=== PATIENT | female | born 1955 ===

== ENCOUNTER 2020-05-10 10:46 | Emergency (ER) | payer MEDICARE ==
--- NOTE | 2020-05-10 11:27 | XRay Report ---
LEFT FOOT 3 VIEWS INDICATION / CLINICAL INFORMATION: swelling. COMPARISON: None available. FINDINGS: Moderate degenerative change in the first metatarsophalangeal joint. No other significant skeletal ab normality Signer Name: Marco Gandhi MD FACReynaldo Signed: 05/10/2020 11:22 AM Workstation Name: [id number]
[2020-05-10 11:38] VITALS: BP 154/97
[2020-05-10] MEDS ORDERED: HYDROcodone/ACETAMINOPHEN 5-325 MG TAB PO STA (11:43)
[2020-05-10] MEDS ORDERED: predniSONE 50 MG TAB PO STA (11:43)
--- NOTE | 2020-05-10 11:58 | Emergency Department Report ---
ED General Adult HPI - General Chief complaint: Extremity Injury, Lower Stated complaint: FOOT SWOLLEN Time Seen by Provider: 05/10/20 11:43 Source: family Mode of arrival: Ambulatory Limitations: No Limitations - History of Present Illness Initial comments: 65-year-old obese F [place]ien female past no history of hypertension presents emerged department complaining of 1 week or so history of progressively worsening pain to the left hallux which she states started after she is started to eat an excessive amount of sardines and salmon. She is tried some [id number] treatments but been unsuccessful and notes that the area has been becoming more red swollen and exquisitely tender and that the Epson salt baths has actually worsened her symptoms. Reports no fever, chills, sweats no chest pain or palpitations no neuropathy is noted. She reports no known history of any diet diabetes or the musculoskeletal issue. -: week(s) Severity scale (0 -10): 10 - Related Data Previous Rx's Medication Instructions Recorded Last Taken Type Colchicine 0.6 mg PO Q1HR #14 capsule 05/10/20 Unknown Rx predniSONE [Deltasone] 50 mg PO QDAY #5 tab 05/10/20 Unknown Rx traMADoL [Ultram] 50 mg PO Q6HR PRN #14 tablet 05/10/20 Unknown Rx Allergies Allergy/AdvReac Type Severity Reaction Status Date / Time No Known Allergies Allergy Unverified 05/10/20 10:55 ED Review of Systems ROS: Stated complaint: FOOT SWOLLEN Other details as noted in HPI Comment: All other systems reviewed and negative ED Past Medical Hx - Past Medical History Previous Medical History?: Yes - Surgical History Past Surgical History?: Yes - Social History Smoking Status: Never Smoker Substance Use Type: Alcohol, Marijuana - Medications Home Medications: Home Medications Medication Instructions Recorded Confirmed Last Taken Type Colchicine 0.6 mg PO Q1HR #14 capsule 05/10/20 Unknown Rx predniSONE [Deltasone] 50 mg PO QDAY #5 tab 05/10/20 Unknown Rx traMADoL [Ultram] 50 mg PO Q6HR PRN #14 tablet 05/10/20 Unknown Rx ED Physical Exam - General Limitations: No Limitations General appearance: alert, in no apparent distress - Head Head exam: Present: atraumatic, normocephalic - Eye Eye exam: Present: normal appearance, PERRL, EOMI Pupils: Present: normal accommodation - ENT ENT exam: Present: normal exam, mucous membranes moist, TM's normal bilaterally - Neck Neck exam: Present: normal inspection, full ROM - Respiratory Respiratory exam: Present: normal lung sounds bilaterally, wheezes, rales, rhonchi. Absent: respiratory distress, chest wall tenderness, accessory muscle use, decreased breath sounds - Cardiovascular Cardiovascular Exam: Present: regular rate, normal rhythm. Absent: systolic murmur, diastolic murmur, rubs, gallop - GI/Abdominal GI/Abdominal exam: Present: soft, normal bowel sounds - Extremities Exam Extremities exam: Present: normal inspection, tenderness (There is tenderness to the base of the left first metatarsophalangeal joint region with some some redness. No abscess is appreciated significant tenderness with palpation and movement of the joint. No broken skin. Capillary refills are brisk pulses are 2+ no petechiae are noted. Knees ankles normal variant) - Back Exam Back exam: Present: normal inspection. Absent: CVA tenderness (R), CVA tenderness (L) - Neurological Exam Neurological exam: Present: alert, oriented X3 - Psychiatric Psychiatric exam: Present: normal affect, normal mood - Skin Skin exam: Present: warm, dry, intact, normal color. Absent: rash ED Course Vital Signs 05/10/20 11:37 Temperature 99.4 F Pulse Rate 78 Respiratory 16 Rate Blood Pressure 154/97 [Right] O2 Sat by Pulse 99 Oximetry Critical care attestation.: If time is entered above; I have spent that time in minutes in the direct care of this critically ill patient, excluding procedure time. ED Disposition Clinical Impression: Podagra Disposition: [id number]-01 TO HOME OR SELFCARE Is pt being admited?: No Does the pt Need Aspirin: No Condition: Stable Instructions: Acute Gouty Arthritis (ED) Prescriptions: Colchicine 0.6 mg PO Q1HR #14 capsule predniSONE [Deltasone] 50 mg PO QDAY #5 tab traMADoL [Ultram] 50 mg PO Q6HR PRN #14 tablet PRN Reason: Pain Referrals: [facility] [Provider Group] - 3-5 Days INDERJIT SHRESTHA MD [Staff Physician] - 3-5 Days
== END 2020-05-10 13:06 | disposition home or self-care (01) ==
LOC: ED 10:46
DX: M10.9 Gout, unspecified (principal); F12.10 Cannabis abuse, uncomplicated; Z79.899 Other long term (current) drug therapy
CPT/HCPCS: 73630; 99283; J7512

== ENCOUNTER 2020-06-16 13:13 | Emergency (ER) | payer MEDICARE ==
[2020-06-16] MEDS ORDERED: KETOROLAC 60 MG/2 ML INJ IM ONE (13:45)
[2020-06-16] MEDS ORDERED: dexAMETHasone 20 MG/5 ML VIAL IM ONE (13:45)
--- NOTE | 2020-06-16 13:48 | Emergency Department Report ---
ED General Adult HPI - General Chief complaint: Extremity Injury, Lower Stated complaint: LT FOOT GOUT/HEADACHE Time Seen by Provider: 06/16/20 13:42 Source: patient Mode of arrival: Ambulatory Limitations: No Limitations - History of Present Illness Initial comments: Patient is a 65-year-old female presents emergency room with complaints of a gout flare that began 2 days ago. She states the gout was in her big toe and partially in her foot. She states that she has not been following the diet for gout and recently ate multiple different meats and lots of sodium during the holidays. She states that she was just diagnosed with gout in April 2020 but did not follow-up with anyone. She states that she has also been having intermittent headache described as a pressure over the last few days. She states that she previously had a history of hypertension and used to take medications but she did lifestyle modifications and her primary care took her off of the blood pressure medicine. She denies any numbness, weakness, vision changes, chest pain, shortness of breath, gait disturbance, speech disturbance. She has a past medical history of gout and ulcerative colitis. No allergies to medications. - Related Data Previous Rx's Medication Instructions Recorded Last Taken Type Colchicine 0.6 mg PO Q1HR #14 capsule 05/10/20 Unknown Rx predniSONE [Deltasone] 50 mg PO QDAY #5 tab 05/10/20 Unknown Rx traMADoL [Ultram] 50 mg PO Q6HR PRN #14 tablet 05/10/20 Unknown Rx Colchicine 0.6 mg PO ONCE 1 Days #3 tablet 06/16/20 Unknown Rx Indomethacin 50 mg PO Q8H PRN #20 capsule 06/16/20 Unknown Rx Prednisone [predniSONE 10 mg 10 mg PO .TAPER #1 tab.ds.pk 06/16/20 Unknown Rx (6-Day Pack, 21 Tabs)] amLODIPine 5 mg PO DAILY #30 tab 06/16/20 Unknown Rx cephALEXin [Keflex] 500 mg PO BID 7 Days #14 cap 06/16/20 Unknown Rx Allergies Allergy/AdvReac Type Severity Reaction Status Date / Time No Known Allergies Allergy Unverified 05/10/20 10:55 ED Review of Systems ROS: Stated complaint: LT FOOT GOUT/HEADACHE Other details as noted in HPI Comment: All other systems reviewed and negative ED Past Medical Hx - Past Medical History Previous Medical History?: Yes Additional medical history: ULCERTIVE COLITIS,GOUT,ELEVATED CHOLESTEROL - Social History Smoking Status: Never Smoker Substance Use Type: Alcohol, Marijuana - Medications Home Medications: Home Medications Medication Instructions Recorded Confirmed Last Taken Type Colchicine 0.6 mg PO Q1HR #14 capsule 05/10/20 Unknown Rx predniSONE [Deltasone] 50 mg PO QDAY #5 tab 05/10/20 Unknown Rx traMADoL [Ultram] 50 mg PO Q6HR PRN #14 tablet 05/10/20 Unknown Rx Colchicine 0.6 mg PO ONCE 1 Days #3 tablet 06/16/20 Unknown Rx Indomethacin 50 mg PO Q8H PRN #20 capsule 06/16/20 Unknown Rx Prednisone [predniSONE 10 mg 10 mg PO .TAPER #1 tab.ds.pk 06/16/20 Unknown Rx (6-Day Pack, 21 Tabs)] amLODIPine 5 mg PO DAILY #30 tab 06/16/20 Unknown Rx cephALEXin [Keflex] 500 mg PO BID 7 Days #14 cap 06/16/20 Unknown Rx ED Physical Exam - General Limitations: No Limitations General appearance: alert, in no apparent distress - Head Head exam: Present: atraumatic, normocephalic - Eye Eye exam: Present: normal appearance, PERRL, EOMI. Absent: periorbital swelling, periorbital tenderness Pupils: Present: normal accommodation - ENT ENT exam: Present: mucous membranes moist - Respiratory Respiratory exam: Present: normal lung sounds bilaterally. Absent: respiratory distress, wheezes, rales, rhonchi, stridor, chest wall tenderness, accessory muscle use, decreased breath sounds, prolonged expiratory - Cardiovascular Cardiovascular Exam: Present: regular rate, normal rhythm, normal heart sounds. Absent: systolic murmur, diastolic murmur, rubs, gallop - Extremities Exam Extremities exam: Present: other (edema and increased warmth present to the left big toe, no signficant erythema, FROM of the left foot, ankle, and toes, neurovascularly intact, no skin changes) - Neurological Exam Neurological exam: Present: alert, oriented X3, CN II-XII intact, normal gait. Absent: motor sensory deficit - Psychiatric Psychiatric exam: Present: normal affect, normal mood - Skin Skin exam: Present: warm, dry, intact ED Course Vital Signs 06/16/20 06/16/20 06/16/20 13:41 13:57 13:58 Temperature 98.8 F Pulse Rate 69 Respiratory 20 18 18 Rate Blood Pressure 192/117 [Right] O2 Sat by Pulse 98 Oximetry 06/16/20 14:57 Temperature Pulse Rate Respiratory Rate Blood Pressure 164/100 [Right] O2 Sat by Pulse Oximetry ED Medical Decision Making - Lab Data Result diagrams: 06/16/20 14:07 06/16/20 14:07 Lab Results 06/16/20 06/16/20 06/16/20 Range/Units 13:57 14:07 14:07 WBC 6.5 (4.5-11.0) K/mm3 RBC 3.90 (3.65-5.03) M/mm3 Hgb 13.6 (10.1-14.3) gm/dl Hct 40.0 (30.3-42.9) % MCV 103 H (79-97) fl MCH 35 H (28-32) pg MCHC 34 (30-34) % RDW 14.4 (13.2-15.2) % Plt Count 187 (140-440) K/mm3 Lymph % (Auto) 21.4 (13.4-35.0) % [place] % (Auto) 8.7 H (0.0-7.3) % Eos % (Auto) 1.8 (0.0-4.3) % Baso % (Auto) 0.8 (0.0-1.8) % Lymph # (Auto) 1.4 (1.2-5.4) K/mm3 [place] # (Auto) 0.6 (0.0-0.8) K/mm3 Eos # (Auto) 0.1 (0.0-0.4) K/mm3 Baso # (Auto) 0.0 (0.0-0.1) K/mm3 Seg Neutrophils % 67.3 (40.0-70.0) % Seg Neutrophils # 4.4 (1.8-7.7) K/mm3 Sodium 137 (137-145) mmol/L Potassium 3.7 (3.6-5.0) mmol/L Chloride 100.3 (98-107) mmol/L Carbon Dioxide 29 (22-30) mmol/L Anion Gap 11 mmol/L BUN 13 (7-17) mg/dL Creatinine 0.9 (0.6-1.2) mg/dL Estimated GFR > 60 ml/min BUN/Creatinine Ratio 14 % Glucose 115 H (65-100) mg/dL Calcium 9.8 (8.4-10.2) mg/dL Total Creatine Kinase (30-135) units/L Urine Color Lise (Yellow) Urine Turbidity Slightly-cloudy (Clear) Urine pH 5.0 (5.0-7.0) Ur Specific [place] 1.025 (1.003-1.030) Urine Protein >500 (Negative) mg/dL Urine Glucose (UA) Neg (Negative) mg/dL Urine Ketones Neg (Negative) mg/dL Urine Blood Neg (Negative) Urine Nitrite Neg (Negative) Urine Bilirubin Neg (Negative) Urine Urobilinogen < 2.0 (<2.0) mg/dL Ur Leukocyte Esterase Mod (Negative) Urine WBC (Auto) 21.0 H (0.0-6.0) /HPF Urine RBC (Auto) 48.0 (0.0-6.0) /HPF U Epithel Cells (Auto) 1.0 (0-13.0) /HPF Calcium Oxalate Crystal 1+ Urine Mucus 3+ /HPF Urine Yeast (Budding) 2+ /HPF 06/16/20 Range/Units 14:07 WBC (4.5-11.0) K/mm3 RBC (3.65-5.03) M/mm3 Hgb (10.1-14.3) gm/dl Hct (30.3-42.9) % MCV (79-97) fl MCH (28-32) pg MCHC (30-34) % RDW (13.2-15.2) % Plt Count (140-440) K/mm3 Lymph % (Auto) (13.4-35.0) % [place] % (Auto) (0.0-7.3) % Eos % (Auto) (0.0-4.3) % Baso % (Auto) (0.0-1.8) % Lymph # (Auto) (1.2-5.4) K/mm3 [place] # (Auto) (0.0-0.8) K/mm3 Eos # (Auto) (0.0-0.4) K/mm3 Baso # (Auto) (0.0-0.1) K/mm3 Seg Neutrophils % (40.0-70.0) % Seg Neutrophils # (1.8-7.7) K/mm3 Sodium (137-145) mmol/L Potassium (3.6-5.0) mmol/L Chloride (98-107) mmol/L Carbon Dioxide (22-30) mmol/L Anion Gap mmol/L BUN (7-17) mg/dL Creatinine (0.6-1.2) mg/dL Estimated GFR ml/min BUN/Creatinine Ratio % Glucose (65-100) mg/dL Calcium (8.4-10.2) mg/dL Total Creatine Kinase 72 (30-135) units/L Urine Color (Yellow) Urine Turbidity (Clear) Urine pH (5.0-7.0) Ur Specific [place] (1.003-1.030) Urine Protein (Negative) mg/dL Urine Glucose (UA) (Negative) mg/dL Urine Ketones (Negative) mg/dL Urine Blood (Negative) Urine Nitrite (Negative) Urine Bilirubin (Negative) Urine Urobilinogen (<2.0) mg/dL Ur Leukocyte Esterase (Negative) Urine WBC (Auto) (0.0-6.0) /HPF Urine RBC (Auto) (0.0-6.0) /HPF U Epithel Cells (Auto) (0-13.0) /HPF Calcium Oxalate Crystal Urine Mucus /HPF Urine Yeast (Budding) /HPF Vital Signs 06/16/20 06/16/20 06/16/20 13:41 13:57 13:58 Temperature 98.8 F Pulse Rate 69 Respiratory 20 18 18 Rate Blood Pressure 192/117 [Right] O2 Sat by Pulse 98 Oximetry 06/16/20 14:57 Temperature Pulse Rate Respiratory Rate Blood Pressure 164/100 [Right] O2 Sat by Pulse Oximetry - Medical Decision Making Patient is a 65-year-old female presents emergency room with complaints of a gout flare that began 2 days ago. She states the gout was in her big toe and partially in her foot. She states that she has not been following the diet for gout and recently ate multiple different meats and lots of sodium during the . She states that she was just diagnosed with gout in April 2020 but did not follow-up with anyone. She states that she has also been having intermittent headache described as a pressure over the last few days. She states that she previously had a history of hypertension and used to take medications but she did lifestyle modifications and her primary care took her off of the blood pressure medicine. She denies any numbness, weakness, vision changes, chest pain, shortness of breath, gait disturbance, speech disturbance. She has a past medical history of gout and ulcerative colitis. No allergies to medications. Initial vitals with elevated blood pressure which improved upon repeat. Labs are stable. UA shows evidence of UTI, there is also proteinuria, likely related to uncontrolled blood pressure. Renal function is normal. Patient given medications while in the emergency department and her pain and headache resolved. Headache is likely secondary to uncontrolled blood pressure, she is not having any focal neuro deficits. Patient given prescriptions for gout, amlodipine for her blood pressure. Advised patient Please take medication as prescribed. Increase your water intake. Please follow-up with your primary care doctor. Please keep a blood pressure log and take this to the primary care doctor. Eat a low-sodium diet. Please follow the diet for gout. Return to emergency room for any new or worsening symptoms. - Differential Diagnosis gout, HTN urgency, HTN emergency, MOISE Critical care attestation.: If time is entered above; I have spent that time in minutes in the direct care of this critically ill patient, excluding procedure time. ED Disposition Clinical Impression: Hypertensive urgency Gout Qualifiers: Gout site: foot Gout etiology: unspecified cause Chronicity: acute Laterality: right Qualified Code(s): M10.9 - Gout, unspecified Proteinuria Qualifiers: Proteinuria type: unspecified Qualified Code(s): R80.9 - Proteinuria, unspecified UTI (urinary tract infection) Qualifiers: Urinary tract infection type: acute cystitis Hematuria presence: with hematuria Qualified Code(s): N30.01 - Acute cystitis with hematuria Disposition: TO HOME OR SELFCARE Is pt being admited?: No Does the pt Need Aspirin: No Condition: Stable Instructions: Low-Purine Eating Plan, Urinary Tract Infection, Adult, [id number], Hypertension, Adult, [id number], Proteinuria Additional Instructions: Please take medication as prescribed. Increase your water intake. Please follo w-up with your primary care doctor. Please keep a blood pressure log and take this to the primary care doctor. Eat a low-sodium diet. Please follow the diet for gout. Return to emergency room for any new or worsening symptoms. Prescriptions: amLODIPine 5 mg PO DAILY #30 tab Colchicine 0.6 mg PO ONCE 1 Days #3 tablet Indomethacin 50 mg PO Q8H PRN #20 capsule PRN Reason: pain cephALEXin [Keflex] 500 mg PO BID 7 Days #14 cap Prednisone [predniSONE 10 mg (6-Day Pack, 21 Tabs)] 10 mg PO .TAPER #1 tab.ds.pk Referrals: INDERJIT SHRESTHA MD [Staff Physician] - 2-3 Days [facility] [Provider Group] - 2-3 Days Time of Disposition: 15:07 Print Language: ANGUILLAN
[2020-06-16] MEDS ORDERED: ACETAMINOPHEN 325 MG TAB PO ONE (13:49)
[2020-06-16 14:15] LABS: Bilirubin,Urine NEG (Negative); Blood,Urine NEG (Negative); Calcium Oxalate Crystals,Urine 1+; Color,Urine Amber (Yellow); Mucus,Urine 3+ /HPF; Urobilinogen,Urine < 2.0 mg/dL (<2.0)
[2020-06-16 14:21] LABS: Protein,Urine >500 mg/dL (Negative)
[2020-06-16 14:26] LABS: Basophils % (Auto) 0.8 % (0.0-1.8); Eosinophils # (Auto) 0.1 K/mm3 (0.0-0.4); Eosinophils % (Auto) 1.8 % (0.0-4.3); Hemoglobin 13.6 gm/dl (10.1-14.3); Lymphocytes # (Auto) 1.4 K/mm3 (1.2-5.4); Lymphocytes % (Auto) 21.4 % (13.4-35.0); Mean Corpuscular HGB Conc 34 % (30-34); Mean Corpuscular Volume 103 fl (79-97); Monocytes # (Auto) 0.6 K/mm3 (0.0-0.8); Monocytes % (Auto) 8.7 % (0.0-7.3); Platelet Count 187 K/mm3 (140-440); Red Cell Distribution Width 14.4 % (13.2-15.2)
[2020-06-16 14:43] LABS: BUN/Creatinine Ratio 14; Blood Urea Nitrogen 13 mg/dL (7-17); Calcium 9.8 mg/dL (8.4-10.2); Hemolysis Index 6
[2020-06-16 14:58] VITALS: BP 164/100
== END 2020-06-16 16:10 | disposition home or self-care (01) ==
LOC: ED 13:13
DX: N39.0 Urinary tract infection, site not specified (principal); R80.9 Proteinuria, unspecified; M10.9 Gout, unspecified; I16.0 Hypertensive urgency; F12.10 Cannabis abuse, uncomplicated; Z79.899 Other long term (current) drug therapy
CPT/HCPCS: 36415; 80048; 81001; 82550; 85025; 87086; 96372; 99283; J1100; J1885